=== PATIENT | female | born 1945 | race Two or more races ===

== ENCOUNTER 2021-12-25 06:18 | Outpatient (CLI) | payer OTHER | END 2021-12-25 06:19 | disposition home or self-care (01) | LOC: LAB 06:18 | PROVIDERS: ATTEND Orthopaedic Surgery | DX: E55.9 Vitamin D deficiency, unspecified (principal); M85.9 Disorder of bone density and structure, unspecified; E56.1 Deficiency of vitamin K; E21.3 Hyperparathyroidism, unspecified; M81.8 Other osteoporosis without current pathological fracture ==